=== PATIENT | female | born 1990 | race Two or more races ===

== ENCOUNTER 2024-12-13 17:54 | Emergency (ER) | payer SELFPAY ==
[2024-12-13 18:11] VITALS: BP 111/81
[2024-12-13 18:40] LABS: Urine Character Clear (Clear)
[2024-12-13 18:41] LABS: Hematocrit 34.9 % (37.0-47.0); Hemoglobin 12.2 g/dL (12.0-16.0); Mean Corp Hgb Conc. 35.0 g/dL (33.0-37.0); Mean Corpuscular Volume 83.3 fL (81.0-99.0); Nucleated Red Blood Cells % 0 %; Platelet Count 235 10^3/uL (130-400); Red Cell Dist. Width 13.0 % (11.5-14.5)
[2024-12-13 18:42] LABS: HCG, Urine Qualitative Screen Negative
[2024-12-13 18:58] LABS: COVID-19 Antigen Negative (Negative)
[2024-12-13 19:03] LABS: ALT (SGPT) 32 U/L (0-35); AST (SGOT) 28 U/L (14-36); Albumin 4.5 g/dl (3.5-5.0); Alkaline Phosphatase 82 U/L (38-126); Blood Urea Nitrogen 11 mg/dl (7-17); Calcium 8.4 mg/dl (8.4-10.2); Carbon Dioxide 24 mmol/L (22-30); Chloride 109 mmol/L (98-107); Glucose 89 mg/dl (70-99); Lipase 126 U/L (23-300); Potassium 3.7 mmol/L (3.5-5.1); Sodium 139 mmol/L (135-145); Total Protein 7.2 g/dl (6.3-8.2); eGFR > 60.00
--- NOTE | 2024-12-13 23:33 | ED.GENMED ---
History of Present Illness
General
Chief Complaint: Fever
Source: patient and fairing man (langjuage line)
Exam Limitations: none
Time Seen by Provider: 12/13/24 20:12
Nursing documentation reviewed up to this point in time: agreed with
History of Present Illness
History of Present Illness:
Patient to ED with complaint of chlls and abd. pain. States this has been ongoing for many months. SHe was evaluated at [facility] and advised to follow up with GI. She states she has no insurance or money to follow up. Brought self to ED
for eval She denies fever/chills, vomiting, diarrhea.
Past History
Past History
ED Past Medical History: None
ED Past Surgical History: None
Review of Systems
Review of Systems
Allergies reviewed?: Yes
All Other Systems: ROS reviewed and negative except as documented in HPI and ROS
Constitutional: Reports fatigue, sleep disturbance and chills
EENT: Reports no symptoms
Respiratory: Reports no symptoms
Cardiac: Reports no symptoms
ABD/GI: Reports abdominal pain
: Reports no symptoms
Musculoskeletal: Reports no symptoms
Skin: Reports no symptoms
Neurological: Reports no symptoms
Psychiatric: Reports no symptoms
Phy Exam
General Physical Exam
General Presentation: well appearing and mild distress
General age: appears stated age
General Skin: warm and dry
General Habitus: normal
General Mental: alert
General Hydration: appears well hydrated
Cardiovascular Exam
Cardiovascular Exam: regular rate/rhythm and no edema
Pulmonary Exam
Pulmonary Exam: lungs clear and no respiratory distress
Gastrointestinal Exam
Gastrointestinal Exam: normal bowel sounds, soft, no organomegaly, no pulsatile mass, non distended and no cva tenderness
Palpation: generalized: Moderate tenderness
Musculoskeletal Exam
Musculoskeletal Exam: full ROM and neuro vasc intact
Skin Exam
Skin Exam: normal color, warm/dry and no rash
Psychiatric Exam
Psychiatric Exam: normal mood/affect
Course
Orders/Labs/Results
Orders:
Orders
12/13/24 18:14
Test Result ONCE
12/13/24 18:32
COVID-19 Antigen Urgent
Source: Nasal Swab
Complete Blood Count/With Diff Urgent
Comprehensive Metabolic Panel Urgent
Lipase Urgent
Influenza A+B Rapid Molecular Urgent
KIERA Source: Nasal Swab
Specimen Description:
12/13/24 18:35
Urinalysis Reflex To Culture Urgent
Date Specimen was Collected: 12/13/24
Time Specimen was Collected: 18:14
Urine,Hcg qualitative screen [HCG, Urine Qualitative Screen] Urgent
Date Specimen was Collected: 12/13/24
Time Specimen was Collected: 18:14
12/13/24 20:28
CT Abd/pelvis W Iv Cont Urgent
Comment:
Reason For Exam: diffuse pain
12/13/24 20:58
Stool Culture Urgent
KIERA Source: Feces/Stool
Specimen Description:
Date Specimen was Collected: 12/13/24
Time Specimen was Collected: 20:56
12/13/24 21:37
Pelvis (Non Obstetric) US [US Pelvis Only (non-obstetric)] Urgent
Comment:
Reason For Exam: pelvic pain, possible hemorrhagic cyst.
Abnormal Lab Results
12/13/24
18:32
RBC 4.19 L 10^6/uL
(4.20-5.40)
Hct 34.9 L %
(37.0-47.0)
Chloride 109 H mmol/L
(98-107)
12/13/24 18:32
12/13/24 18:32
Vital Signs
Initial and Last Documented VS:
Initial Vital Signs
Pulse Resp BP Pulse Ox
90 16 111/81 99
12/13/24 18:11 12/13/24 18:11 12/13/24 18:11 12/13/24 18:11
Last Documented Vital Signs
Temp Pulse Resp BP Pulse Ox
98.7 F 90 16 111/81 100
12/14/24 00:04 12/13/24 18:11 12/13/24 18:11 12/13/24 18:11 12/14/24 00:04
*Radiology
Radiology exam reviewed: radiology read reviewed
*Pulse Oximetry
SaO2: 99
Oxygen Mode of Delivery: Room air
Patient hypoxic: no
*Critical Care Note
Total Time (30-74mins, 75-104mins- exclusive of procedures): Not Applicable
Update Note
Update Note:
Patient to ED with complaint of chills and abdominal pain 'for months'. 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 SHe reports beginning to feel better and then came
to [place]. SHe does not know what medication she was taking. Labs, US, CT reviewed with her. Simple left cyst noted on US other was all studies normal. Discussed need for follow up with legal archivist regarding her HPv infections. [facility] She was also given number for clinic here and for legal archivist and GI here also. She is discharged home, agrees to follow up. Given instructions on s/s toreturn to ED and she is agreeable to plan.
ED Attending Note
-
Portions of this chart may have been created with voice recognition software.� Occasional wrong word or��sound alike� substitutions may have occurred due to the inherent limitations of voice recognition software.
Discharge Plan
Departure
Patient Disposition: Home (Routine Discharge)
Date of Disposition: 12/13/24
Time of Disposition: 23:33
Patient with high blood pressure during this ER visit?: No
Condition: Good
Covid-19: Not Applicable
Discharge Problem:
Ovarian cyst
Instructions: Ovarian cysts
Referrals:
[facility] [Outside] - Next open appointment
NONE,* [Family Provider, Internal Medicine]
Elisabeth Simmons MD [Active, Gynecology] - Next open appointment
Interventions
Interventions:
*Risk Screen - Suicide Last Done: 12/13/24 18:11
*General Assessment Last Done: 12/13/24 18:11
*Neglect/Abuse Screening Last Done: 12/13/24 18:11
*ED- Fall Risk Assessment Last Done: 12/13/24 18:11
*ED COVID-19 Vaccine History Last Done: 12/13/24 18:11
*Nursing Disposition Last Done: 12/14/24 00:05
ED- Neurological Assessment Last Done: 12/13/24 20:19
ED-Skin Assessment Last Done: 12/13/24 20:19
Discharge Date and Time
Discharge Date/Time: 12/14/24 00:05
Print Language: MALAWIAN
== END 2024-12-14 00:05 | disposition home or self-care (01) ==
LOC: EMR 17:54
PROVIDERS: Emergency Medicine; EMERGENCY PHYSICIAN Emergency Medicine
DX: N83.202 Unspecified ovarian cyst, left side (principal); R50.9 Fever, unspecified; Z11.52 Encounter for screening for COVID-19; Z59.71 Insufficient health insurance coverage
CPT/HCPCS: 99284; 74177; 76856; 80053; 81003; 81025; 83690; 85025; 87045; 87046; 87324; 87427; 87449; 87502; 87811; Q9967